=== PATIENT | female | born 1980 | race Hispanic/Latino ===

== ENCOUNTER 2020-11-18 22:37 | Emergency (ER) | payer OTHER, SELFPAY ==
[~2020-11-18] VITALS: Ht 162.6 cm; Wt 68.9 kg
[~2020-11-18 22:37] MED LIST: 0.9%NACL 1000ML 1,000 ML IV ONE
[2020-11-19] MEDS ORDERED: ONDANSETRON 4MG INJ IVP ONE (00:30)
[2020-11-19] MEDS ORDERED: PROCHLORPERAZINE EDISYLATE 5 MG/ML 2 ML VIAL IVP ONE (00:30)
[2020-11-19] MEDS ORDERED: 0.9%NACL 1000ML 1,000 ML IV ONE (00:30)
[2020-11-19] MEDS ORDERED: PROCHLORPERAZINE 10MG/2ML INJ ONE (00:41)
[2020-11-19 00:49] LABS: BASOPHILS % (AUTO) 0.3 % (0.0-5.0); EOSINOPHILS % (AUTO) 0.7 % (0.0-8.0); HEMATOCRIT 44.4 % (36-48); LYMPHOCYTES % (AUTO) 4.2 % (21.0-51.0); MEAN CORPUSCULAR HGB CONC 34.2 g/dL (32.0-36.0); MEAN CORPUSCULAR VOLUME 93.5 fL (79-99); MONOCYTES % (AUTO) 5.2 % (3.0-13.0); NEUTROPHILS % (AUTO) 88.9 % (40.0-77.0); PLATELET COUNT (AUTO) 159 K/uL (130-400); RED BLOOD CELL COUNT(AUTO) 4.75 MIL/uL (4.00-5.50); RED CELL DISTRIBUTION WIDTH 12.3 % (11.0-15.5); WHITE BLOOD COUNT (AUTO) 12.2 K/uL (4.8-10.8)
[2020-11-19 01:04] LABS: BILIRUBIN,TOTAL 0.7 mg/dL (0.2-1.0); CREATININE 1.1 mg/dL (0.5-1.5); POTASSIUM 3.9 mmol/L (3.5-5.1)
[2020-11-19 02:02] VITALS: BP 136/77
[2020-11-19] MEDS ORDERED: FAMO-136 PO (03:18)
[2020-11-19 03:21] VITALS: BP 131/74
== END 2020-11-19 03:24 | disposition home or self-care (01) ==
LOC: EDH 22:37
DX: K52.9 Noninfective gastroenteritis and colitis, unspecified (principal); E11.9 Type 2 diabetes mellitus without complications; E86.0 Dehydration; Z20.822 Contact with and (suspected) exposure to COVID-19; Z79.899 Other long term (current) drug therapy
CPT/HCPCS: 36415; 71045; 80053; 84484; 85025; 87635; 87804 ×2; 96361 ×2; 96374; 96375; 99284; C9803; J0780; J2405; J7030

== ENCOUNTER 2023-11-18 13:35 | Emergency (ER) | payer SELFPAY ==
[~2023-11-18] VITALS: Ht 162.6 cm; Wt 63.5 kg
[~2023-11-18 13:35] MED LIST changes: -0.9%NACL 1000ML 1,000 ML IV ONE; +FAMO-136 PO
[2023-11-18 14:59] LABS: BASOPHILS # (AUTO) 0.02 K/uL (0.00-0.20); BASOPHILS % (AUTO) 0.3 % (0.0-5.0); EOSINOPHILS # (AUTO) 0.06 K/uL (0.00-0.70); EOSINOPHILS % (AUTO) 0.9 % (0.0-8.0); HEMATOCRIT 40.7 % (36-48); IMMATURE GRANULOCYTE ABSOLUTE 0.03 K/uL (0-1); LYMPHOCYTES % (AUTO) 15.5 % (21.0-51.0); MEAN CORPUSCULAR HEMOGLOBIN 31.4 pg (27.0-33.0); MEAN CORPUSCULAR HGB CONC 33.9 g/dL (32.0-36.0); MEAN CORPUSCULAR VOLUME 92.7 fL (79-99); MONOCYTES # (AUTO) 0.4 K/uL (0.1-1.0); MONOCYTES % (AUTO) 6.7 % (3.0-13.0); NEUTROPHILS # (AUTO) 4.9 K/uL (1.8-7.7); NEUTROPHILS % (AUTO) 76.1 % (40.0-77.0); PLATELET COUNT (AUTO) 125 K/uL (130-400); RED BLOOD CELL COUNT(AUTO) 4.39 MIL/uL (4.00-5.50); WHITE BLOOD COUNT (AUTO) 6.4 K/uL (4.8-10.8)
[2023-11-18 15:12] LABS: CREATININE 0.8 mg/dL (0.5-1.0); POTASSIUM 3.7 mmol/L (3.5-5.1)
[2023-11-18 16:41] VITALS: BP 119/71; PULSE 92; RESP 18; TEMP 97.7; O2SAT 100
[2023-11-18] MEDS ORDERED: ACET-66 PO (17:12)
[2023-11-18] MEDS: ketOROlac 15MG/ML VIAL (15MG/ML) IV ONE (17:25)
[2023-11-18 17:49] LABS: APPEARANCE,URINE CLEAR (CLEAR); BILIRUBIN,URINE NEGATIVE (NEGATIVE); COLOR,URINE LIGHT-YELLOW (YELLOW); GLUCOSE, URINE (UA) >=1000 mg/dL (NEGATIVE); KETONES,URINE 100 mg/dL (NEGATIVE); LEUKOCYTE ESTERASE ,URINE NEGATIVE Leu/uL (NEGATIVE); NITRATE,URINE NEGATIVE (NEGATIVE); OCCULT BLOOD,URINE SMALL (NEGATIVE); PH,URINE 5.5 (5.0-8.0); PROTEIN,URINE 10 mg/dL (NEGATIVE); UROBILINOGEN,URINE 0.2 mg/dL (0.2-1.0)
[2023-11-18 17:52] LABS: ADD UA MICROSCOPIC YES
[2023-11-18 17:54] LABS: BACTERIA,URINE RARE /HPF (None Seen); MUCUS,URINE RARE LPF (None Seen); SQUAMOUS EPITHELIAL CELL,UR MOD /HPF (0-2); WBC,URINE 0-1 /HPF (0-1)
[2023-11-18 18:02] LABS: AMPHET/METH SCREEN,URINE NEGATIVE (NEGATIVE); BARBITURATE SCREEN, URINE NEGATIVE (NEGATIVE); BENZODIAZEPINES SCREEN,URINE NEGATIVE (NEGATIVE); CANNABINOID SCREEN,URINE POSITIVE (NEGATIVE); COCAINE SCREEN,URINE NEGATIVE (NEGATIVE); OPIATE SCREEN,URINE NEGATIVE (NEGATIVE); PHENCYCLIDINE SCREEN,URINE NEGATIVE (NEGATIVE)
== END 2023-11-18 17:34 | disposition home or self-care (01) ==
LOC: EDH 13:35
DX: R55 Syncope and collapse (principal); R51.9 Headache, unspecified; E11.9 Type 2 diabetes mellitus without complications; W18.39XA Other fall on same level, initial encounter; Y93.89 Activity, other specified; Y92.89 Other specified places as the place of occurrence of the external cause; Y99.8 Other external cause status
CPT/HCPCS: 99285; 96374; 70450; 71045; 82550; 84484; 80048; 80305; 84703; 85025; 36415; 93005 ×2; 81001; J1885